=== PATIENT | female | born 1990 | race Caucasian/White ===

== ENCOUNTER 2018-03-30 20:39 | Emergency (ER) | payer MEDICAID, OTHER ==
[2018-03-30 20:40] VITALS: BMI 29.9
[2018-03-30 20:54] VITALS: RESP 18
[2018-03-30 22:25] LABS: URINE BILIRUBIN NEGATIVE (NEGATIVE); URINE CLARITY CLOUDY (Clear); URINE COLOR YELLOW (YELLOW); URINE GLUCOSE (UA) NEG (Normal); URINE LEUKOCYTE ESTERASE SMALL Leu/uL (Negative); URINE PROTEIN NEGATIVE (NEGATIVE)
[2018-03-30 22:39] LABS: URINE BLOOD MODERATE (NEGATIVE)
[2018-03-30 22:40] LABS: SQUAMOUS EPITHIAL 8 /hpf (0-5); URINE BACTERIA RARE (<OCC)
[2018-03-30 23:09] LABS: BASO % 0.7 % (0.0-2.0); EOS # 0.1 K/uL (0.0-0.7); EOS % 2.3 % (0.0-4.0); HEMOGLOBIN 13.1 g/dL (12.0-16.0); LYMPH # 2.7 K/uL (1.0-4.3); LYMPH % 44.6 % (20.0-40.0); MEAN CORPUSCULAR HEMOGLOBIN 31.7 pg (27.0-31.0); MEAN PLATELET VOLUME 10.8 fl (7.2-11.7); MONO # 0.5 K/uL (0.0-0.8); MONO % 7.8 % (0.0-10.0); NEUT # 2.7 K/uL (1.8-7.0); NEUT % 44.6 % (50.0-75.0); NRBC % 0.1 % (0.0-0.0); RBC 4.14 Mil/uL (3.80-5.20); RED CELL DISTRIBUTION WIDTH 12.2 % (11.5-14.5)
--- NOTE | 2018-03-30 23:39 | ED PDOC ---
HPI: Female Pain Time Seen by Provider: 03/30/18 21:39 Chief Complaint (Nursing): Female Genitourinary Chief Complaint (Provider): Vaginal Bleeding History Per: Patient History/Exam Limitations: no limitations Onset/Duration Of Symptoms: Days (x3) Current Symptoms Are (Timing): Still Present Associated Symptoms: denies: Nausea, Vomiting Additional Complaint(s): 28 year old female presents to the ED with 2 days of increasing vaginal bleedi ng. Patient states 3 days ago, she took a home test which was positive. LMP was 5 weeks ago. Patient states she has had previous elective abortions. She indicates she has mild suprapubic pain. Otherwise, no nausea, vomiting, weakness, history of STI's, or history of ectopic . PMD: none Past Medical History Reviewed: Historical Data, Nursing Documentation, Vital Signs Vital Signs: Last Vital Signs Temp 98.7 F 03/30/18 20:51 Pulse 92 H 03/30/18 20:51 Resp 18 03/30/18 20:51 BP 138/82 03/30/18 20:51 Pulse Ox - Medical History PMH: Asthma Denies: Chronic Kidney Disease - Surgical History Surgical History: No Surg Hx - Family History Family History: States: Unknown Family Hx - Immunization History Hx Tetanus Toxoid Vaccination: No Hx Influenza Vaccination: No Hx Pneumococcal Vaccination: No - Home Medications Home Medications: Ambulatory Orders Medication Instructions Recorded Acetaminophen [Tylenol] 650 mg PO Q6 #100 capsule 03/31/18 - Allergies Allergies/Adverse Reactions: Allergies Allergy/AdvReac Type Severity Reaction Status Date / Time No Known Allergies Allergy Verified 03/27/18 14:29 Review of Systems ROS Statement: Except As Marked, All Systems Reviewed And Found Negative Constitutional: Negative for: Weakness Gastrointestinal: Positive for: Abdominal Pain (suprapubic). Negative for: Nausea, Vomiting Genitourinary Female: Positive for: Vaginal Bleeding Physical Exam - Reviewed Nursing Documentation Reviewed: Yes Vital Signs Reviewed: Yes - Physical Exam Appears: Positive for: Non-toxic, No Acute Distress Head Exam: Positive for: ATRAUMATIC, NORMOCEPHALIC Skin: Positive for: Normal Color, Warm, Dry Eye Exam: Positive for: Normal appearance Neck: Positive for: Normal, Painless ROM Cardiovascular/Chest: Positive for: Regular Rate, Rhythm Respiratory: Positive for: Normal Breath Sounds. Negative for: Wheezing, R espiratory Distress Gastrointestinal/Abdominal: Positive for: Normal Exam, Soft. Negative for: Tenderness Pelvic Exam: Positive for: Other (Exam deferred per patient's request) Extremity: Positive for: Normal ROM Neurologic/Psych: Positive for: Alert, Oriented. Negative for: Motor/Sensory Deficits - Laboratory Results Result Diagrams: 03/30/18 23:04 Medical Decision Making Medical Decision Making: Initial Impression: workup for IUP vs threatened Initial Plan: --Basic labs --Pelvic/transvaginal US --Tylenol for pain --Reassess patient 00:24 Pelvic/Transvaginal US Findings: The uterus measures 9x5x7.1 cm. Anteverted uterus. Fibroid is noted in the anterior aspect of the fundus measuring 1.8 cm. Intrauterine gestational sac measuring 9.6 mm. pole measures 4.1 mm which corresponds to an estimated gestation age of 6 weeks and one day. No cardiac activity is noted. Right ovary measures 2.5x1.5x1.5 cm with a hyperechoic area measuring 0.5 cm. The left ovary measures 2.6x1.9x2.6 cm with opacity in this measuring 1.4 cm. Impression: Early intrauterine gestation without cardiac activity visualized. Anterior fundal uterine fibroid. Hyperechoic nodule in the right ovary, nonspecific. Left ovarian mass corpus luteum cyst. Scribe Attestation: Documented by Rayray Enriquez acting as a scribe for Sandra Boone MD. Provider Scribe Attestation: All medical record entries made by the Scribe were at my direction and personally dictated by me. I have reviewed the chart and agree that the record accurately reflects my personal performance of the history, physical exam, medical decision making, and the department course for this patient. I have also personally directed, reviewed, and agree with the discharge instructions and disposition. Disposition - Clinical Impression Clinical Impression: Bleeding in early - Disposition Disposition Time: 01:15 Condition: STABLE Additional Instructions: Today your labs show slightly increased hormone level and a confirmed in the uterus. 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 Return to the emergency department if symptoms worsen such as bleeding, pain, dizziness, or other new symptoms. Prescriptions: Acetaminophen [Tylenol] 650 mg PO Q6 #100 capsule Instructions: Bleeding With (DC) Forms: [employer] (Albanian), [facility] ED School/Work Excuse Print Language: [place]
[2018-03-31 01:31] VITALS: BP 103/53; PULSE 72; TEMP 97.9; O2SAT 100
[2018-03-31 07:13] LABS: BLOOD UREA NITROGEN 15 mg/dl (7-17); CALCIUM 9.2 mg/dL (8.4-10.2); GFR NON-AFRICAN AMERICAN > 60
--- NOTE | 2018-03-31 11:14 | US ---
Date of service: 03/30/2018 PROCEDURE: First trimester ultrasound HISTORY: 1st trimester vag bleed. Rule out ectopic COMPARISON: None TECHNIQUE: Standard protocol for this study/examination. FINDINGS: LMP: 02/04/2018. Prior examinations from the current : None TECHNIQUE: Real-time 2D imaging, duplex and color Doppler. FINDINGS: Cardiac activity: Absent Measurements: [place] rump length: 0.41 cm Gestational age based on CRL 6 weeks 1 day Gestational sac measurement 9.6 mm. Gestational age derived from LMP: 7 weeks 6 days HENRI based on LMP: 11/10/2018 HENRI based on biometry: 11/22/2018 Gestational concordance documented Yolk sac not identified Cervix: No Cervical abnormalities: Negative examination for cervical dilatation or effacement. Closed cervix measuring 2.7 cm Subchorionic hemorrhage: None UTERUS: 5 x 7.1 x 9.0 cm. Solitary sub serosal anterior fibroid 1.6 x 1.8 cm. ADNEXA: Right: 1.5 x 1.5 x 2.5 cm. Solitary echogenic focus 4 x 5 mm of uncertain etiology and significance. Normal Doppler arterial waveform documented. Left: 1.9 x 2.6 x 2.6 cm. Simple cyst 1.2 x 1.4 cm normal Doppler arterial waveform documented Fluid in the cul-de-sac: None IMPRESSION: 6 weeks 1 day intrauterine gestation. Absence of cardiac activity and absence of yolk sac. Differential considerations include intrauterine demise and early gestational without documented cardiac activity. Follow-up recommendations: Repeat ultrasound and correlation with beta HCG. Concordant findings (preliminary report) provided by [facility].
== END 2018-03-31 01:47 | disposition home or self-care (01) ==
LOC: H.ER 20:39
DX: O20.9 Hemorrhage in early pregnancy, unspecified (principal); D25.9 Leiomyoma of uterus, unspecified; J45.909 Unspecified asthma, uncomplicated; Z36.87 Encounter for antenatal screening for uncertain dates